=== PATIENT | female | born 1935 | race Caucasian/White ===

== ENCOUNTER 2022-08-08 08:55 | Day surgery (SDC) | payer MEDICARE ==
[2022-08-07 15:23] VITALS: BMI 29.1
[2022-08-08] MEDS ORDERED: Lidocaine 1% (PF) 30 ML VIAL ONE (10:32)
[2022-08-08] MEDS ORDERED: Heparin 10,000 UNITS/ 10 ML VIAL ONE (10:32)
[2022-08-08] MEDS ORDERED: Lidocaine 1% PF 5 ML VIAL ONE (11:32)
[2022-08-08] MEDS ORDERED: fentaNYL 50 mcg/mL 1 mL Vial ONE ×2 (11:35→14:10)
[2022-08-08] MEDS ORDERED: Midazolam HCl 2 mg/2 ml Vial ONE (11:36)
[2022-08-08] MEDS ORDERED: Adenosine 6 MG/2 ML VIAL ONE (11:41)
[2022-08-08] MEDS ORDERED: PROPOFOL 40 ML ONE (12:07)
== END 2022-08-08 15:40 | disposition home or self-care (01) ==
LOC: SDC 08:55
PROVIDERS: ATTEND Internal Medicine Cardiovascular Disease
PROC: 02583ZZ Destruction of Conduction Mechanism, Percutaneous Approach (ICD-10-PCS; principal; 2022-08-08)
PROC: 02K83ZZ Map Conduction Mechanism, Percutaneous Approach (ICD-10-PCS; 2022-08-08)
PROC: 4A023FZ Measurement of Cardiac Rhythm, Percutaneous Approach (ICD-10-PCS; 2022-08-08)
PROC: 4A0234Z Measurement of Cardiac Electrical Activity, Percutaneous Approach (ICD-10-PCS; 2022-08-08)
DX: I48.3 Typical atrial flutter (principal); I48.0 Paroxysmal atrial fibrillation; I47.1 Supraventricular tachycardia; E78.5 Hyperlipidemia, unspecified; K21.9 Gastro-esophageal reflux disease without esophagitis; I12.9 Hypertensive chronic kidney disease with stage 1 through stage 4 chronic kidney disease, or unspecified chronic kidney disease; N18.9 Chronic kidney disease, unspecified; D63.1 Anemia in chronic kidney disease; M17.0 Bilateral primary osteoarthritis of knee; M10.9 Gout, unspecified; Z85.3 Personal history of malignant neoplasm of breast; Z86.16 Personal history of COVID-19; Z86.73 Personal history of transient ischemic attack (TIA), and cerebral infarction without residual deficits; Z87.891 Personal history of nicotine dependence; Z79.01 Long term (current) use of anticoagulants; Z79.899 Other long term (current) drug therapy; Z88.1 Allergy status to other antibiotic agents; Z88.2 Allergy status to sulfonamides; Z88.8 Allergy status to other drugs, medicaments and biological substances
CPT/HCPCS: 93005; 93621; 93653; J3010; C1731; C1732; C1760; C1769; C1894; J0153; J1644; J2001; J2250; J2704

== ENCOUNTER 2024-01-07 15:32 | Outpatient (CLI) | payer MEDICARE ==
[2024-01-07 16:51] LABS: #Basophils 0.07 10x3/uL (0.0-0.2); %Basophils 0.8 % (0.0-1.0); %Eosinophils 1.8 % (0.0-10.0); %Lymphocytes 19.4 % (21.0-51.0); %Monocytes 9.9 % (0.0-10.0); %Neutrophils 67.7 % (42.0-75.0); Hematocrit 31.8 % (36.0-47.0); Hemoglobin 10.1 g/dL (12.0-16.0); Mean Corpuscular HGB CONC 31.8 g/dL (32.0-36.0); Mean Corpuscular Hemoglobin 29.8 pg (27.0-31.0); Mean Corpuscular Volume 93.8 fL (78.0-98.0); Mean Platelet Volume 8.7 fL (7.4-10.4); Platelet Count 300 10x3/uL (130-400); RBC Distribution Width 12.8 % (11.5-14.5); Red Blood Cell (RBC) Count 3.39 mill/uL (4.20-5.40)
[2024-01-07 17:02] LABS: Anion Gap 13 mmol/L (10-20); BUN (Urea Nitrogen) 20 mg/dL (9.8-20.1); Calc. Creatinine Clearance 0 mL/min (70-130); Calcium 10.6 mg/dL (7.8-10.44); Carbon Dioxide 25 mmol/L (23-31); Chloride 98 mmol/L (98-107); Estimated GFR 62; Glucose 100 mg/dL (83-110); Potassium 4.8 mmol/L (3.5-5.1); Sodium 131 mmol/L (136-145)
[2024-01-07 17:05] LABS: PTT 29.6 sec (22.9-36.1)
== END 2024-01-07 15:33 | disposition home or self-care (01) ==
LOC: LABBT 15:32
PROVIDERS: ATTEND Orthopaedic Surgery
DX: Z01.818 Encounter for other preprocedural examination (principal); M19.012 Primary osteoarthritis, left shoulder
CPT/HCPCS: 80048; 85025; 85610; 85730; 87081; 93005; 93010